=== PATIENT | male | born 1985 | race African-American/Black ===

== ENCOUNTER 2022-01-17 18:55 | Emergency (ER) | payer SELFPAY ==
--- NOTE | ~2022-01-17 | XR_ITS ---
EXAMINATION: XR CHEST CLINICAL INFORMATION: Possible aspiration COMPARISON: None TECHNIQUE: 2 views of the chest were obtained. FINDINGS: Normal appearance of the cardiomediastinal structures. No effusions or pneumothoraces. Normal pattern of pulmonary vasculature. No focal pulmonary consolidation. XR/XR chest 2V IMPRESSION: *No acute cardiopulmonary abnormalities. Lungs clear.
--- NOTE | 2022-01-17 19:25 | ED.PSYCH ---
HPI - Psych General Chief Complaint: Anxiety Stated Complaint: panic attack Time Seen by Provider: 01/17/22 19:03 Related Data Allergies Allergy/AdvReac Type Severity Reaction Status Date / Time No Known Allergies Allergy Verified 01/17/22 19:36 [facility] Past Medical History Attestation statement: The following information was validated with the patient. Source: old records reviewed Physical Exam Vital Signs: Vital Signs: Last Vital Signs Temp 98.4 F 01/17/22 19:31 Pulse 101 H 01/17/22 19:31 Resp 0 L 01/17/22 19:31 BP 123/56 L 01/17/22 19:31 Pulse Ox 99 01/17/22 19:31 BMI result Body Mass Index 29.5
[2022-01-17 19:28] VITALS: BP 123/56; PULSE 101; RESP 20; TEMP 36.9; O2SAT 99; BMI 29.5
[2022-01-17 19:31] VITALS: BP 123/56; PULSE 101; RESP 0; TEMP 36.9; O2SAT 99
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
--- NOTE | 2022-01-17 20:57 | PC.NURSE ---
pt states he feels better and wants to leave, pt instructed we are just waiting for chest xray for d.c.
== END 2022-01-17 22:01 | disposition home or self-care (01) ==
PROVIDERS: Emergency Provider Emergency Medicine
DX: F41.9 Anxiety disorder, unspecified (principal)
CPT/HCPCS: 71046; 99283; 99284